=== PATIENT | female | born 1990 | race Caucasian/White ===

== ENCOUNTER 2016-06-27 16:07 | Emergency (ER) | payer OTHER ==
[2016-06-27 16:15] VITALS: BP 113/76; PULSE 66; TEMP 97.9; BMI 25.4
--- NOTE | 2016-06-27 16:43 | PDOC ---
History of Present Illness - General History Source: Patient Exam Limitations: No Limitations - History of Present Illness Initial Comments: 06/27/16 16:43 The patient is a 25 year old female, with no significant past medical history, who presents today complaining of tail bone pain s/p mechanical fall 20 minutes ago. The patient is an employee here at [employer]. She tripped over the x-ray portable machine while exiting the elevator and landed on her buttocks and elbows. She states that the tailbone pain is exacerbated upon walking and sitting/applying pressure to the area. She notes that she has a small abrasion on her left elbow. Denies head trauma or LOC. She states that her tetanus shot is up to date. Allergies: Sulfa Surgical Hx: (November 2015) <Montserrat Delgado - Last Filed: 06/27/16 16:50> <Jonah Keith - Last Filed: 06/27/16 16:53> - General Chief Complaint: Pain, Acute Stated Complaint: FALL Time Seen by Provider: 06/27/16 16:11 Past History <Montserrat Delgado - Last Filed: 06/27/16 16:50> - Past Medical History Thyroid Disease: No - Psycho/Social/Smoking Cessation Hx Anxiety: No Suicidal Ideation: No Smoking Status: No Smoking History: Never smoked Number of Cigarettes Smoked Daily: 0 Hx Alcohol Use: No Drug/Substance Use Hx: No Substance Use Type: Alcohol <Jonah Keith - Last Filed: 06/27/16 16:53> - Past Medical History Allergies/Adverse Reactions: Allergies Allergy/AdvReac Type Severity Reaction Status Date / Time Sulfa (Sulfonamide Allergy Verified 06/27/16 16:09 Antibiotics) [Sulfa(Sulfonamide Antibiotics)] Home Medications: Ambulatory Orders NK [No Known Home Medication] 01/17/15 Review of Systems - Review of Systems Comments:: 06/27/16 16:43 CONSTITUTIONAL: Absent: Fever, Chills, Diaphoresis, Generalized Weakness, Malaise, Loss of Appetite HEENT: Absent: Rhinorrhea, Nasal Congestion, Throat Pain, Throat Swelling, Difficulty Swallowing, Mouth Swelling, Ear Pain, Eye Pain, Visual Changes CARDIOVASCULAR: Absent: Chest Pain, Syncope, Palpitations, Irregular Heart Rate, Lightheadedness , Peripheral Edema MUSCULOSKELETAL: Present: tailbone pain. Absent: Myalgia, Arthralgia, Joint Swelling, Neck Pain SKIN: Present: small laceration on the left elbow that was cleaned in the ED. Absent: Rash, Itching, Pallor <Montserrat Delgado - Last Filed: 06/27/16 16:50> *Physical Exam - Vital Signs Last Vital Signs Temp Pulse Resp BP Pulse Ox 97.9 F 66 15 113/76 100 06/27/16 16:09 06/27/16 16:09 06/27/16 16:09 06/27/16 16:09 06/27/16 16:09 - Physical Exam Comments: 06/27/16 16:44 GENERAL: [The patient is awake, alert, and fully oriented, in no acute distress. ] HEAD: [Normal with no signs of trauma.] EYES: [Pupils equal, round and reactive to light, extraocular movements intact, sclera anicteric, conjunctiva clear.] BACK: [No sacral tenderness. +tenderness over the coccyx. No crepitus.] EXTREMITIES: [Normal ROM of bilateral elbows. No bony tenderness. Normal pronation and supination. no edema. Sensation intact. Circulation intact.] NEUROLOGICAL: [Normal speech, normal gait.] PSYCH: [Normal mood, normal affect.] SKIN: [+ superficial abrasion distal to the left elbow. Warm, Dry, normal turgor , no rashes or lesions noted.] <Montserrat Delgado - Last Filed: 06/27/16 16:50> - Vital Signs Last Vital Signs Temp Pulse Resp BP Pulse Ox 97.9 F 66 15 113/76 100 06/27/16 16:09 06/27/16 16:09 06/27/16 16:09 06/27/16 16:09 06/27/16 16:09 <Jonah Keith - Last Filed: 06/27/16 16:53> Medical Decision Making - Medical Decision Making 06/27/16 16:52 Patient presents after tripping and falling in the elevator. She complains of 2 injuries, one is an abrasion to the skin by the left elbow. The other is pain to the coccyx where she landed on her buttocks. On examination, the abrasion is minor and there is no sign of bony injury to the left elbow region. The coccyx is tender. There is no crepitus. Impression: Left elbow abrasion, coccygeal contusion, less likely fracture. Patient advised regarding treatment of pain and follow-up. 06/27/16 16:52 The scribe's documentation has been prepared under my direction and personally reviewed by me in its entirety. I have confirmed that the note above accurately reflects all work, treatment, procedures, and medical decision- making performed by me. <Jonah Keith - Last Filed: 06/27/16 16:53> *DC/Admit/Observation/Transfer - Attestations Scribe Attestion: 06/27/16 16:48 Documentation prepared by RENE Islas, acting as internist medical doctor md for Jonah Keith MD. <Montserrat Delgado - Last Filed: 06/27/16 16:50> - Discharge Dispostion Admit: No <Jonah Keith - Last Filed: 06/27/16 16:53> Diagnosis at time of Disposition: Elbow abrasion Qualifiers: Encounter type: initial encounter Laterality: left Qualified Code(s): S50.312A - Abrasion of left elbow, initial encounter Coccyx contusion Qualifiers: Encounter type: initial encounter Qualified Code(s): S30.0XXA - Contusion of lower back and pelvis, initial encounter - Discharge Dispostion Disposition: HOME Condition at time of disposition: Stable - Referrals Referrals: Toy Mcgee [Primary Care Provider] - - Patient Instructions Printed Discharge Instructions: DI for Coccyx Fracture Additional Instructions: You were evaluated today after a fall. The left elbow shows no signs of a bony injury or fracture. Keep the skin abrasion clean with soap and water, apply a thin coat of bacitracin and a bandage. Watch for any signs of infection. You also have a contusion to your coccyx. This is often worse when sitting. Apply ice packs as needed for 20 minutes every couple of hours, take Aleve twice daily as needed. Follow-up if you are not feeling better next week. Return to the emergency department for any severe or progressive symptoms.
== END 2016-06-27 16:53 | disposition home or self-care (01) ==
LOC: FER 16:07
DX: S30.0XXA Contusion of lower back and pelvis, initial encounter (principal); S50.312A Abrasion of left elbow, initial encounter; W01.0XXA Fall on same level from slipping, tripping and stumbling without subsequent striking against object, initial encounter; Y93.89 Activity, other specified; Y92.239 Unspecified place in hospital as the place of occurrence of the external cause; Y99.0 Civilian activity done for income or pay
CPT/HCPCS: 99282-25

== ENCOUNTER 2017-04-27 17:28 | Emergency (ER) | payer BC ==
[2017-04-27] MEDS ORDERED: FAMOTIDINE 20 MG TABLET PO ONE (17:56)
[2017-04-27] MEDS ORDERED: SODIUM CHLORIDE 1,000 ML IV STA (17:57)
--- NOTE | 2017-04-27 17:57 | PDOC ---
History of Present Illness - History of Present Illness Initial Comments: 04/27/17 18:34 The patient is a 26 year old female, with no significant past medical history, who presents to the emergency department with her mother for an allergic reaction today. Patient was eating [place] food when she began experiencing itching and hives on her chest, abdomen, and extremities. She states she has experienced a similar episode approximately 1 week. She denies any swelling or irritation of the throat, chest tightness or wheezing. She denies recent fevers, chills, headache or dizziness. She denies recent nausea, vomit, diarrhea or constipation. She denies recent dysuria, frequency, urgency or hematuria. She denies recent chest pain or shortness of breath. Allergies: sulfa Past surgical history: <Carolina Bryan - Last Filed: 04/27/17 18:41> <Darya Kraus - Last Filed: 04/27/17 18:59> <Ambrocio Ambriz - Last Filed: 04/29/17 07:28> - General Chief Complaint: Allergic Reaction Stated Complaint: ALLERGIC REACTION Time Seen by Provider: 04/27/17 17:52 Past History <Carolina Bryan - Last Filed: 04/27/17 18:41> <Darya Kraus - Last Filed: 04/27/17 18:59> - Past Medical History Thyroid Disease: No - Suicide/Smoking/Psychosocial Hx Smoking Status: No Smoking History: Never smoked Number of Cigarettes Smoked Daily: 0 Hx Alcohol Use: No Drug/Substance Use Hx: No Substance Use Type: Alcohol <Ambrocio Ambriz - Last Filed: 04/29/17 07:28> - Past Medical History Allergies/Adverse Reactions: Allergies Allergy/AdvReac Type Severity Reaction Status Date / Time Sulfa (Sulfonamide Allergy Intermediate Verified 04/27/17 17:30 Antibiotics) [Sulfa(Sulfonamide Antibiotics)] Home Medications: Ambulatory Orders Methimazole 40 mg PO BID 04/27/17 Review of Systems - Review of Systems Comments:: 04/27/17 18:37 CONSTITUTIONAL: Absent: fever, no chills, no fatigue EYES: Absent: visual changes ENT: Absent: ear pain, no sore throat CARDIOVASCULAR: Absent: chest pain, no palpitations RESPIRATORY: Absent: cough, no SOB GI: Absent: abdominal pain, no nausea, no vomiting, no constipation, no diarrhea GENITOURINARY: Absent: dysuria, no frequency, no hematuria MUSCULOSKELETAL: Absent: back pain, no arthralgia, no myalgia SKIN: Present: urticaria on chest, abdomen, and extremities. <Carolina Bryan - Last Filed: 04/27/17 18:41> *Physical Exam - Vital Signs Last Vital Signs Temp Pulse Resp BP Pulse Ox 97.5 F L 117 H 20 147/101 100 04/27/17 17:30 04/27/17 17:30 04/27/17 17:30 04/27/17 17:30 04/27/17 17:30 - Physical Exam Comments: 04/27/17 18:39 GENERAL: Well-appearing, well-nourished. No apparent distress. HEENT: Normocephalic, atraumatic. PERRL, EOM intact. No swelling of throat , or irritation in oropharynx. CARDIOVASCULAR: Normal S1, S2. Regular rate and rhythm. PULMONARY: No chest tightness. Clear to auscultation bilaterally. No wheezing. ABDOMEN: Soft, non-distended, non-tender. EXTREMITIES: Normal ROM in all four extremities. No gross deformities. SKIN: Warm, dry. Resolving urticaria on trunk and extremities. No angioedema on mouth or face. NEUROLOGICAL: No focal neurological deficits. <Carolina Bryan - Last Filed: 04/27/17 18:41> - Vital Signs Last Vital Signs Temp Pulse Resp BP Pulse Ox 97.5 F L 117 H 20 147/101 100 04/27/17 17:30 04/27/17 17:30 04/27/17 17:30 04/27/17 17:30 04/27/17 17:30 <Darya Kraus - Last Filed: 04/27/17 18:59> ED Treatment Course - Medications Given in the ED: ED Medications Discontinued Medications Generic Name Dose Route Start Last Admin Trade Name Freq PRN Reason Stop Dose Admin Famotidine 20 mg 04/27/17 17:56 04/27/17 18:07 Pepcid - PO 04/27/17 17:57 20 mg ONCE ONE Administration <Carolina Bryan - Last Filed: 04/27/17 18:41> - Medications Given in the ED: ED Medications Discontinued Medications Generic Name Dose Route Start Last Admin Trade Name Snow PRN Reason Stop Dose Admin Famotidine 20 mg 04/27/17 17:56 04/27/17 18:07 Pepcid - PO 04/27/17 17:57 20 mg ONCE ONE Administration Sodium Chloride 1,000 mls @ 1,000 mls/hr 04/27/17 17:57 04/27/17 18:07 Normal Saline - IV 04/27/17 18:56 1,000 mls/hr ASDIR STA Administration <Darya Kraus - Last Filed: 04/27/17 18:59> Medical Decision Making - Medical Decision Making 04/29/17 07:26 Physical exam was normal except for some resolving urticaria on the trunk and extremities. The patient did not experience any irritation or swelling of the oropharynx, tongue, lips, mouth, or face. She had no tightness in her chest, wheezing, or shortness of breath. There was no abdominal pain, nausea, or vomiting. Impression: Mild urticaria, probably the result of food or cold weather, resolving after one dose of Benadryl Plan: Continue Benadryl and Pepcid until completely resolved. Elimination diet to try to determine the cause. Consider seeing an line lead for skin or blood testing. Urticaria and pruritus almost completely resolved upon discharge. To return if further symptoms develop or follow up with primary physician as directed. <Ambrocio Ambriz - Last Filed: 04/29/17 07:28> *DC/Admit/Observation/Transfer - Attestations Scribe Attestion: 04/27/17 18:42 Documentation prepared by Carolina Bryan, acting as medical professionals for Ambrocio Barnes MD. <Carolina Bryan - Last Filed: 04/27/17 18:41> <Darya Kraus - Last Filed: 04/27/17 18:59> - Discharge Dispostion Admit: No <Ambrocio Ambriz - Last Filed: 04/29/17 07:28> Diagnosis at time of Disposition: Allergic urticaria - Discharge Dispostion Disposition: HOME Condition at time of disposition: Improved - Patient Instructions Printed Discharge Instructions: DI for Hives Additional Instructions: Continue Benadryl 50 mg every 4 hours and Pepcid 20 mg every 12 hours until hives have disappeared Return to ER if there are any further symptoms. Consider seeing an line lead to investigate the cause of the ALLERGIC reaction. It is most likely a food. Avoid hot passer showers, consider cool soaks or compresses to lessen itching. Use moisturizer in abundance and frequently to keep the skin from becoming dry. - Post Discharge Activity Forms/Work/School Notes: Back to Work
[2017-04-27 18:02] VITALS: BP 147/101; PULSE 117; TEMP 97.5; BMI 23.6
[2017-04-27] MEDS ORDERED: FAMOTIDINE 20 MG TABLET ONE (18:03)
== END 2017-04-27 19:02 | disposition home or self-care (01) ==
LOC: FER 17:28
PROC: 3E0337Z Introduction of Electrolytic and Water Balance Substance into Peripheral Vein, Percutaneous Approach (ICD-10-PCS; principal; 2017-04-27)
DX: L50.0 Allergic urticaria (principal)
CPT/HCPCS: 99282-25

== ENCOUNTER 2021-09-23 07:14 | Emergency (ER) | payer OTHER ==
[2021-09-23] MEDS ORDERED: ACETAMINOPHEN 1000 MG/100 ML BAG IVPB ONE (07:18)
[2021-09-23] MEDS ORDERED: ONDANSETRON 4 MG/2 ML VIAL IVPUSH ONE (07:18)
[2021-09-23 07:31] VITALS: BP 141/83; PULSE 119; BMI 23.6
[2021-09-23] MEDS ORDERED: ACETAMINOPHEN INJECTION 100 ML IVPB ONE (07:50)
[2021-09-23] MEDS ORDERED: ONDANSETRON 4 MG/2 ML VIAL ONE (08:06)
[2021-09-23 08:38] LABS: HEMATOCRIT 38.5 % (32.4-45.2); HEMOGLOBIN 12.7 G/dL (10.7-15.3); MCH 24.2 pg (25.7-33.7); MCHC 33.1 g/dl (32.0-36.0); MEAN CELL VOLUME 73.1 fl (80-96); MEAN PLT VOLUME 8.1 fl (7.5-11.1); PLATELET COUNT 340.4 10^3/uL (134-434); RBC 5.27 10^6/uL (3.60-5.2); RDW 17.1 % (11.6-15.6); WHITE BLOOD COUNT 11.9 10^3/uL (4.0-10.8)
[2021-09-23 08:52] LABS: ALBUMIN 4.1 g/dl (3.4-5.0); BILIRUBIN,TOTAL 0.9 mg/dl (0.2-1); CALCIUM 9.5 mg/dl (8.5-10); CREATININE 0.4 mg/dl (0.55-1.3); TOT PROT 7.4 g/dl (6.4-8.2)
[2021-09-23 09:16] LABS: EPITHELIAL CELLS FEW /hpf
[2021-09-23 09:20] LABS: INR 1.09 (0.83-1.09); PROTHROMBIN TIME (PATIENT) 12.6 SEC (9.7-13.0)
[2021-09-23] MEDS ORDERED: CIPROFLOXACIN 500 MG TABLET (RESTRICTED TO ID) PO ONE (10:51)
[2021-09-23] MEDS ORDERED: metroNIDAZOLE 250 MG TABLET PO ONE (10:51)
[2021-09-23] MEDS ORDERED: CIPROFLOXACIN 250 MG TABLET (RESTRICTED TO ID) PO ONE ×2 (10:52→11:00)
[2021-09-23] MEDS ORDERED: metroNIDAZOLE 250 MG TABLET ONE ×2 (10:52→11:00)
== END 2021-09-23 11:11 | disposition home or self-care (01) ==
LOC: FER 07:14
PROC: 3E033GC Introduction of Other Therapeutic Substance into Peripheral Vein, Percutaneous Approach (ICD-10-PCS; principal; 2021-09-23)
DX: K57.92 Diverticulitis of intestine, part unspecified, without perforation or abscess without bleeding (principal)
CPT/HCPCS: 36415; 74176-TC; 80053; 81003; 81015; 83690; 84703; 85025; 85610; 85730; 86850; 86900; 86901; 99285-25